=== PATIENT | male | born 1940 | race Caucasian/White ===

== ENCOUNTER 2021-03-30 15:51 | Observation (INO) | payer MEDICARE, SELFPAY ==
[2021-03-30] VITALS (8 sets, daily range): BP systolic 108–144; BP diastolic 72–89; PULSE 74–92; RESP 16–23; TEMP 36.3–36.6; O2SAT 93–96; BMI 31.8
[2021-03-30 16:23] LABS: Basophils Absolute Auto 0.1 K/mm3 (0.0-0.1); Basophils Percent Auto 0.7 % (0.2-1.2); Eosinophils Absolute Auto 0.2 K/mm3 (0-0.3); Eosinophils Percent Auto 3.5 % (0-4.4); Hematocrit 41.1 % (42.0-52.0); Hemoglobin 13.4 g/dL (14.0-18.0); Immature Granulocyte Absolute 0.03 K/mm3 (0.00-0.031); Immature Granulocyte Percent A 0.4 % (0-0.5); Lymphocytes Absolute Auto 1.09 K/mm3 (0.9-3.2); Mean Corpuscular HGB Conc 32.6 g/dl (32-36); Mean Corpuscular Hemoglobin 30.7 pg (26-34); Mean Corpuscular Volume 94.3 fl (80-100); Monocytes Absolute Auto 0.7 K/mm3 (0.1-0.6); Monocytes Percent Auto 9.7 % (2.6-8.5); Neutrophils Absolute Auto 4.8 K/mm3 (1.3-6.7); Neutrophils Percent Auto 69.7 % (45.5-73.1); Platelet Count Result 262 k/mm3 (150-375); Red Blood Count 4.36 M/mm3 (4.6-6.20); Red Cell Distribution Width 12.3 % (11.5-14.5); White Blood Count 6.8 K/mm3 (4.5-10.0)
[2021-03-30 16:33] LABS: Alanine Aminotransferase 18 U/L (4-50); Albumin Level 4.1 g/dL (3.5-5.1); Alkaline Phosphatase 60 U/L (38-126); Anion Gap 11 mmol/L (8-16); Aspartate Amino Transferase 26 U/L (17-59); Bilirubin,Total 0.3 mg/dL (0.2-1.3); Blood Urea Nitrogen 26 mg/dL (9-20); Calcium 9.6 mg/dL (8.4-10.2); Carbon Dioxide 21 mmol/L (22-30); Chloride 108 mmol/L (98-107); Estimated CRCL calculation 69 ml/min; Estimated Glomerular Filt Rate > 60; Glucose 109 mg/dL (75-110); Potassium 4.1 mmol/L (3.4-5.0); Sodium 140 mmol/L (137-145)
[2021-03-30 16:36] LABS: INR 0.9; Partial Thromboplastin Time 24.3 SECONDS (22.3-36.8); Prothrombin Time 12.6 Seconds (11.1-14.7)
--- NOTE | 2021-03-30 16:46 | ED.GIBLEED ---
HPI - GI Bleed General Chief complaint: GI Bleed Stated complaint: blood in stool Time Seen by Provider: 03/30/21 16:02 Source: patient and RN notes reviewed Mode of arrival: ambulatory Limitations: no limitations History of Present Illness HPI Narrative: This is a 80 year old male who presents for evaluation of bloody stools. He states last night around 1 am he had a bowel movement. He was unable to see his stool's appearance but he noticed blood stain around toilet this morning. He reports he had a bowel movement around 130 pm today , and he noticed that he passed bright red blood. He denies abdominal pain, nausea, vomiting or dizziness. He states he has past history of hemorrhoids that would bleeding when he was dealing with constipation. His stools are soft currently because he is taking Miralax. He takes plavixs daily. Related Data Home Medications Medication Instructions Recorded Confirmed Adults Multivitamin 1 tablet PO DAILY 03/30/21 03/30/21 calcium carbonate-vitamin D3 1 tablet PO BID 03/30/21 03/30/21 [Calcium with Vitamin D] clopidogrel [Plavix] 75 mg PO HS 03/30/21 03/30/21 pravastatin 40 mg PO HS 03/30/21 03/30/21 Allergies Allergy/AdvReac Type Severity Reaction Status Date / Time No Known Allergies Allergy Verified 03/30/21 15:55 Review of Systems Review of Systems: All systems reviewed & are unremarkable except as noted in HPI and below Constitutional: Constitutional: Denies chills, Denies fatigue and Denies fever(s) Gastrointestinal: Gastrointestinal: Denies abdominal pain, Denies nausea and Denies vomiting Musculoskeletal: Musculoskeletal: Reports arthralgias PMFSH Past Medical History Medical History (Updated 03/31/21 @ 00:13 by Jazzy Orourke MD) CAD (coronary artery disease) GI bleed Hyperlipidemia Lung mass Treated with radiation treatment and has yearly scans Prostate cancer Patient had multiple radiation treatments. The 1st time the prostate was frozen and then several years later returned so the patient had several radiation treatments after that. 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 His is the durable power civil rights attorney for healthcare. The patient is a full code. He does not want to live in a vegetative state. The patient has a son and a daughter. His is the durable power civil rights attorney but in the event that she is not able to then the son is a durable power civil rights attorney. Patient is a former smoker. He does not use any alcohol marijuana or illicit drugs. Smoking packs per day: 1 Smoking cigarettes per day: 20.0 Years smoked: 35 Smoking pack-years: 35.00 Smoking status: Former smoker Alcohol intake: current Drinks per week: 6 Substance use: current Substance use type: does not use Spiritual care concerns: No Exam Const: General: no acute distress and alert Orientation/consciousness: patient oriented x3 Eyes: EOM: EOMs intact bilaterally Resp: Effort & Inspection: normal respiratory effort and no retractions Auscultation: clear to auscultation bilaterally Cardio: Rate: regular rate Rhythm: regular rhythm Heart sounds: no murmurs GI: GI Palp: Yes Soft to palpation, No Tenderness to palpation present (GI) and No Guarding due to palpation present (GI) Auscultation: normal bowel sounds Rectal Exam: normal sphincter tone Other: bright red blood on digital exam, no clots, no acute bleeding Skin: General skin exam: normal color R
[2021-03-30 18:15] LABS: Hematocrit 39.9 % (42.0-52.0); Hemoglobin 13.2 g/dL (14.0-18.0)
--- NOTE | 2021-03-30 20:03 | PC.NURSE ---
RN not ready for report-she will call back per floor
--- NOTE | 2021-03-30 20:59 | ADMGEN ---
This patient, Hiram Palomino, was admitted to Medical Room 252-01. Patient/family oriented to hospital policies and general routines including ID bracelet, bed and alarms, visiting hours, pain management, procedures, bathroom and other care routines, personal items, smoking policy, room service/diet, and visiting hours. Information on how to activate the Rapid Response Team has been discussed. Patient/Family are encouraged to report perceived risks to care and to ask questions if they do not understand what they are told or what they should do.
--- NOTE | 2021-03-30 23:23 | PM.IMHP ---
H&P: HPI History of Present Illness Date/Time: 03/30/21 23:23 this is a 80-year-old male patient who came in today for evaluation of bloody stools. The patient initially wanted to go to [facility] but was told that they do not have a GI on-call. The patient came to the emergency room here for evaluation bloody stool. He states that last night around 1:00 a.m. he had a bowel movement he did really notice if there was blood in there until later on the morning he woke up and saw that there was a dark ring in the stool that appeared to be blood. The patient had another bowel movement this afternoon which was bright red blood. The patient stated that he has had another bloody stool since he was admitted here. The patient stated that he has been taking a lot of NSAIDs due to his right hip pain. The patient stated that he should not have taken the NSAIDs with his Plavix. He states that his GI doctors Dr. parekh at [facility]. The patient stated that he would not want to have a colonoscopy here and that he would rather go back to his regular GI doctor. However was explained to him that an emergency situation that he would be seen by the GI specialist here for possible colonoscopy if need be. The patient was agreeable to this 13.2 and 39.9 today the patient stated that he has only had 1 bloody stool since he was admitted. He denies any discomfort. No nausea vomiting or diarrhea. The patient was given IV Tylenol in the emergency room. The patient is being admitted to observation on the date of service of 03/30/2020 Chief Complaint: GI bleed Review of Systems Review of Systems: All systems reviewed & are unremarkable except as noted in HPI and below Constitutional: Constitutional: Reports as per HPI and Reports no additional constitutional complaints Eyes: Eyes: Reports as per HPI and Reports no additional eye complaints ENT: Reports system reviewed and no additional complaints, except as documented and Reports Normal hearing present Cardiovascular: Cardiovascular: Reports no additional cardiovascular complaints Respiratory: Respiratory: Reports no additional respiratory complaints and Reports no additional respiratory complaints Gastrointestinal: Gastrointestinal: Reports as per HPI and Reports no additional gastrointestinal complaints Musculoskeletal: Musculoskeletal: Reports no additional musculoskeletal complaints Integumentary/Breasts: Skin/Breast: Reports system reviewed and no additional complaints, except as docu and Reports as per HPI Neurologic: Reports system reviewed and no additional complaints, except as documented, Reports as per HPI and Reports Normal hearing present Psychiatric: Psychiatric: Reports no additional psychiatric complaints and Reports as per HPI Endocrine: Endocrine: Reports no additional endocrine complaints Hematologic/Lymphatic: Hematologic/Lymphatic: Reports no additional hematologic/lymphatic complaints Allergic/Immunologic: Allergic/Immunologic: Reports no additional allergic/immunologic complaints [facility] Past Medical History Medical History (Updated 03/30/21 @ 23:41 by Yaneth Landers NP) CAD (coronary artery disease) GI bleed Hyperlipidemia Lung mass Treated with radiation treatment and has yearly scans Prostate cancer Patient had multiple radiation treatments. The 1st time the prostate was frozen and then several years later returned so the patient had several radiation treatments after that. Surgical History Surgical History (Updated 03/30/21 @ 23:34 by Yaneth Landers NP) H/O cystoscopy Hx of colonoscopy Family History Family History (Updated 03/30/21 @ 23:36 by Yaneth Landers NP) Sibling Parkinsons disease Grandparent Diabetes mellitus Mother Emphysema of lung Father Lung cancer Social History Social History (Updated 03/30/21 @ 23:39 by Yaneth Landers NP) Social History: The patient is and she had a specialty business for the
[2021-03-31] VITALS (7 sets, daily range): BP systolic 121–152; BP diastolic 55–82; PULSE 68–77; RESP 14–22; TEMP 36.4–36.9; O2SAT 94–96
[2021-03-31 03:50] LABS: Hematocrit 37.6 % (42.0-52.0); Hemoglobin 12.3 g/dL (14.0-18.0)
[2021-03-31 05:59] LABS: Basophils Percent Auto 0.6 % (0.2-1.2); Eosinophils Absolute Auto 0.3 K/mm3 (0-0.3); Eosinophils Percent Auto 4.6 % (0-4.4); Hematocrit 36.6 % (42.0-52.0); Hemoglobin 12.2 g/dL (14.0-18.0); Immature Granulocyte Absolute 0.03 K/mm3 (0.00-0.031); Immature Granulocyte Percent A 0.4 % (0-0.5); Lymphocytes Absolute Auto 0.87 K/mm3 (0.9-3.2); Lymphocytes Percent Auto 12.9 % (18.3-44.2); Mean Corpuscular HGB Conc 33.3 g/dl (32-36); Mean Corpuscular Hemoglobin 30.9 pg (26-34); Mean Corpuscular Volume 92.7 fl (80-100); Mean Platelet Volume 9.1 fl (7.4-10.4); Monocytes Absolute Auto 0.8 K/mm3 (0.1-0.6); Monocytes Percent Auto 11.1 % (2.6-8.5); Neutrophils Absolute Auto 4.8 K/mm3 (1.3-6.7); Neutrophils Percent Auto 70.4 % (45.5-73.1); Platelet Count Result 244 k/mm3 (150-375); Red Blood Count 3.95 M/mm3 (4.6-6.20); Red Cell Distribution Width 12.3 % (11.5-14.5); White Blood Count 6.8 K/mm3 (4.5-10.0)
[2021-03-31 06:18] LABS: Alanine Aminotransferase 15 U/L (4-50); Albumin Level 3.7 g/dL (3.5-5.1); Alkaline Phosphatase 55 U/L (38-126); Anion Gap 10 mmol/L (8-16); Aspartate Amino Transferase 26 U/L (17-59); Bilirubin,Total 0.5 mg/dL (0.2-1.3); Blood Urea Nitrogen 22 mg/dL (9-20); Carbon Dioxide 24 mmol/L (22-30); Chloride 107 mmol/L (98-107); Estimated CRCL calculation 78 ml/min; Estimated Glomerular Filt Rate > 60; Glucose 112 mg/dL (75-110); Lactate Dehydrogenase 315 U/L (313-618); Magnesium 1.9 mg/dL (1.6-2.3); Sodium 141 mmol/L (137-145)
--- NOTE | 2021-03-31 07:02 | WPDGICN ---
Assessment and Plan Assessment and plan (1) GI bleed: Code(s): K92.2 - Gastrointestinal hemorrhage, unspecified Status: Acute Assessment and Plan: He had had red blood in his stools once when straining when he was constipated. He has been on MiraLax for the last several months and now has soft stools. He was not straining excessively when he passed blood Saturday. He has no rectal pain. He has noted blood not only in the toilet but also when wiping himself. he would prefer to go back to his regional director of admissions in [place] for procedures. Because his hemoglobin is stable. 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 He had not noticed any bleeding at the time of his radiation. GI Consult Note Consult date/time: 03/31/21 07:02 HPI: Hiram Palomino is a 80 year old male Who presented to the emergency room with rectal bleeding. He states that blood was initially bright red but it also was dark later. He was not having any abdominal pain he was not straining he has had no vomiting or nausea. 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 He had been coughing and taking anti-inflammatory medications also. He denies heartburn or dysphagia weight loss or fever. The last time he had a colonoscopy was in [place], with Dr. Whitfield.. He had had radiation treatment for prostate cancer but does not recall any bleeding associated with that. Review of Systems Review of Systems: All systems reviewed & are unremarkable except as noted in HPI and below [facility] Past Medical History Medical History (Updated 03/31/21 @ 07:05 by Lyle Gama MD) CAD (coronary artery disease) GI bleed Hyperlipidemia Lung mass Treated with radiation treatment and has yearly scans Prostate cancer Patient had multiple radiation treatments. The 1st time the prostate was frozen and then several years later returned so the patient had several radiation treatments after that. 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 His is the durable power civil attorney for healthcare. The patient is a full code. He does not want to live in a vegetative state. The patient has a son and a daughter. His is the durable power civil attorney but in the event that she is not able to then the son is a durable power civil attorney. Patient is a former smoker. He does not use any alcohol marijuana or illicit drugs. Smoking packs per day: 1 Smoking cigarettes per day: 20.0 Years smoked: 35 Smoking pack-years: 35.00 Smoking status: Former smoker Alcohol intake: current Drinks per week: 6 Substance use: current Substance use type: does not use Spiritual care concerns: No Meds Home Medications and Allergies Home Medications Medication Instructions Recorded Confirmed Type Adults Multivitamin 1 tablet PO DAILY 03/30/21 03/30/21 History calcium carbonate-vitamin D3 1 tablet PO BID 03/30/21 03/30/21 History [Calcium with Vitamin D] clopidogrel [Plavix] 75 mg PO HS 03/30/21 03/30/21 History pravastatin 40 mg PO HS 03/30/21 03/30/21 History Allergies Allergy/AdvReac Type Severity Reaction Status Date / Time No Known Allergies Allergy
[2021-03-31] MEDS: PANTOPRAZOLE SODIUM IV 40 MG VIAL IV PUSH (08:01)
[2021-03-31 11:57] LABS: Hematocrit 38.3 % (42.0-52.0); Hemoglobin 12.6 g/dL (14.0-18.0)
--- NOTE | 2021-03-31 12:14 | PC.NURSE ---
Patient to GI lab per wheelchair. Report given to Lupe, all questions answered.
[2021-03-31] MEDS: LACTATED RINGERS 1,000 ML 150 ML IV CONT (12:25)
--- NOTE | 2021-03-31 12:35 | WPDANESEPPF ---
Anes - Initial Pre Proc Eval Procedure: Operation Date: 03/31/21 12:30 Proposed Procedures p Esophagogastroduodenoscopy - Lyle Gama MD Date/Time: 03/31/21 12:35 Surgeon: Mindy Olivo PA-C Pre Op Diagnosis: Rectal Bleeding Patient Data Age: 80 Gender: M Height: 5 ft 9.5 in Weight: 99.2 kg Last Vital Signs Temp 97.6 F 03/31/21 12:28 Pulse 77 03/31/21 12:28 Resp 20 03/31/21 12:28 BP 152/70 H 03/31/21 12:28 Pulse Ox 96 03/31/21 12:28 Allergies Allergy/AdvReac Type Severity Reaction Status Date / Time No Known Allergies Allergy Verified 03/31/21 12:22 Home Medications Medication Instructions Recorded Confirmed Type Adults Multivitamin 1 tablet PO DAILY 03/30/21 03/30/21 History calcium carbonate-vitamin D3 1 tablet PO BID 03/30/21 03/30/21 History [Calcium with Vitamin D] clopidogrel [Plavix] 75 mg PO HS 03/30/21 03/30/21 History pravastatin 40 mg PO HS 03/30/21 03/30/21 History Laboratory Tests 03/30/21 03/30/21 03/30/21 16:17 16:17 16:17 WBC 6.8 K/mm3 K/mm3 (4.5-10.0) RBC 4.36 M/mm3 L M/mm3 (4.6-6.20) Hgb 13.4 g/dL L g/dL (14.0-18.0) Hct 41.1 % L % (42.0-52.0) MCV 94.3 fl fl (80-100) MCH 30.7 pg pg (26-34) MCHC 32.6 g/dl g/dl (32-36) RDW 12.3 % % (11.5-14.5) Plt Count 262 k/mm3 k/mm3 (150-375) MPV 9.0 fl fl (7.4-10.4) Immature Gran % (Auto) 0.4 % % (0-0.5) Neut % (Auto) 69.7 % % (45.5-73.1) Lymph % (Auto) 16.0 % L % (18.3-44.2) [place] % (Auto) 9.7 % H % (2.6-8.5) Eos % (Auto) 3.5 % % (0-4.4) Baso % (Auto) 0.7 % % (0.2-1.2) Lymph # (Auto) 1.09 K/mm3 K/mm3 (0.9-3.2) [place] # (Auto) 0.7 K/mm3 H K/mm3 (0.1-0.6) Eos # (Auto) 0.2 K/mm3 K/mm3 (0-0.3) Baso # (Auto) 0.1 K/mm3 K/mm3 (0.0-0.1) Abs Immat Gran (auto) 0.03 K/mm3 K/mm3 (0.00-0.031) Absolute Neuts (auto) 4.8 K/mm3 K/mm3 (1.3-6.7) Absolute Nucleated RBC 0.0 K/mm3 K/mm3 (0.0-0.012) Nucleated RBC % 0.0 % % (0.0-0.2) PT 12.6 Seconds Seconds (11.1-14.7) INR 0.9 APTT 24.3 SECONDS SECONDS (22.3-36.8) Sodium 140 mmol/L mmol/L (137-145) Potassium 4.1 mmol/L mmol/L (3.4-5.0) Chloride 108 mmol/L H mmol/L (98-107) Carbon Dioxide 21 mmol/L L mmol/L (22-30) Anion Gap 11 mmol/L mmol/L (8-16) BUN 26 mg/dL H mg/dL (9-20) Creatinine 0.90 mg/dL mg/dL (0.7-1.3) Estim Creat Clear Calc 69 ml/min ml/min Estimated GFR > 60 (59 - ) Glucose 109 mg/dL mg/dL (75-110) Calcium 9.6 mg/dL mg/dL (8.4-10.2) Magnesium Ferritin Total Bilirubin 0.3 mg/dL mg/dL (0.2-1.3) AST 26 U/L U/L (17-59) ALT 18 U/L U/L (4-50) Alkaline Phosphatase 60 U/L U/L (38-126) Lactate Dehydrogenase Total Protein 7.0 g/dL g/dL (6.3-8.2) Albumin 4.1 g/dL g/dL (3.5-5.1) TSH (Reflex) Blood Type Antibody Screen 03/30/21 03/30/21 03/31/21 16:17 18:09 00:40 WBC RBC Hgb 13.2 g/dL L g/dL 12.3 g/dL L g/dL (14.0-18.0) (14.0-18.0) Hct 39.9 % L % 37.6 % L % (42.0-52.0) (42.0-52.0) MCV MCH MCHC RDW Plt Count MPV Immature Gran % (Auto) Neut % (Auto) Lymph % (Auto) [place] % (Auto) Eos % (Auto) Baso % (Auto) Lymph # (Auto) [place] # (Auto) Eos # (Auto) Baso # (Auto) Abs Immat Gran (auto) Absolute Neuts (auto) Absolute Nucleated RBC
[2021-03-31] MEDS: BENZOCAINE (*SP) 60 ML SPRAY CAN (HURRICAINE) 1 SPRAY MUCOUS MEM (12:45)
[2021-03-31] MEDS: SIMETHICONE ORAL SUSPENSION 20 MG/0.3 ML 30 ML BOTTLE 0.6 ML PO (12:53)
--- NOTE | 2021-03-31 14:19 | PM.DS ---
DS: Admitting Diagnosis Admitting Diagnosis Admitting Diagnosis: Rectal bleeding DS: Discharge Diagnosis Discharge Diagnosis (1) GI bleed: Code(s): K92.2 - Gastrointestinal hemorrhage, unspecified Status: Acute Assessment and Plan: Presented with 4-5 episodes of bright red bleeding per rectum that then became dark/tarry. He did not wish to undergo colonoscopy as he would prefer to follow up with his established GI specialist at [facility], but was agreeable to EGD given concerns for melena. Underwent EGD on 03/31/[address] Gama which demonstrated nonerosive reflux disease with no findings of bleeding. Given his stable hemoglobin, it was felt to be appropriate for him to follow up with his GI promptly as an outpatient to schedule colonoscopy. (2) Normocytic anemia: Code(s): D64.9 - Anemia, unspecified Status: Acute Assessment and Plan: Baseline hemoglobin is not known. Hgb remained stable around 12.5. Vital signs remained stable and his rectal bleeding improved. (3) CAD (coronary artery disease): Code(s): I25.10 - Atherosclerotic heart disease of [place] coronary artery without angina pectoris Status: Chronic Assessment and Plan: Reported minimal blockages in one of his coronary arteries and had been taking Plavix. Plavix held in light of GI bleed and should be resumed after prompt follow up with his gastroeneterologist. (4) Right hip pain: Code(s): M25.551 - Pain in right hip Status: Acute Assessment and Plan: Recently developed right hip soreness after a golf game. He had started taking ibuprofen for this, therefore there was concern for ulcer or other upper GI cause of bleeding. EGD negative. Discussed avoiding NSAIDs. Supportive care for right hip. DS: Summary Hospital Course Hospital Course: Date of admission: 03/30/2021 Date of discharge: 03/31/2021 Hiram Palomino is a 80-year-old male with a history of CAD, hyperlipidemia, and remote history of prostate cancer s/p radiation who presented to the emergency department on 03/30/2021 with complaints of bright red blood in stools. Upon presentation to the emergency department, his vital signs were stable, hemoglobin 13.2, hematocrit 39.9, and BMP was unremarkable. He was admitted to the hospitalist service and seen in consultation by Gastroenterology. Please see above for further details. He underwent EGD which did not demonstrate any findings to explain his bleeding. He did not wish to undergo colonoscopy and will follow-up with his rubber tester at [facility]. His rectal bleeding improved. He was feeling in his usual state of health. Given his overall improvement and stable hemoglobin and hematocrit, he was determined to no longer require inpatient care and was felt to be stable for discharge. We discussed worrisome signs and symptoms for which to return and he was educated on his medications. He understands need for follow-up with his rubber tester and PCP. He was discharged in hemodynamically stable condition on 03/31/2021. Status at Discharge Functional status at discharge: independent ambulation Overall status at discharge: patient is progressing back to baseline Time Spent with Patient Time attestation: Total time spent providing and/or coordinating discharge services: 45 minutes Time spent: Greater than 30 minutes Exam Narrative: Exam Narrative: Mr. Palomino is a well-nourished, well-appearing 80-year-old male who is lying supine in bed. He appears comfortable and is in NARD. Neuro: awake, alert and oriented x4, speech clear, no focal neuro deficits noted HEENMT: normocephalic, atraumatic, EOMI, sclerae anicteric, moist oral mucosa, tongue midline, nares patent Neck: supple, no lymphadenopathy Respiratory: clear to auscultation bilaterally, nonlabored breathing Cardio: regular rate, regular rhythm with S1-S2 Abdomen: nondistended, normoactive bow
== END 2021-03-31 15:40 | disposition home or self-care (01) ==
LOC: ANHED 16:18 → ANH2MED 19:08
PROVIDERS: Emergency Medicine; Internal Medicine Gastroenterology; Nurse Practitioner; Admitting Provider Family Medicine; Emergency Provider General Practice; PCP Internal Medicine Geriatric Medicine; Visit Provider Physician Assistant
PROC: 0DJ08ZZ Inspection of Upper Intestinal Tract, Via Natural or Artificial Opening Endoscopic (ICD-10-PCS; CPT 43235; principal; 2021-03-31 12:30)
DX: K92.2 Gastrointestinal hemorrhage, unspecified (principal); K92.1 Melena; K21.9 Gastro-esophageal reflux disease without esophagitis; I25.10 Atherosclerotic heart disease of native coronary artery without angina pectoris; D64.9 Anemia, unspecified; E78.5 Hyperlipidemia, unspecified; M25.551 Pain in right hip; Z85.46 Personal history of malignant neoplasm of prostate; Z87.891 Personal history of nicotine dependence; Z92.3 Personal history of irradiation; Z79.02 Long term (current) use of antithrombotics/antiplatelets
CPT/HCPCS: 43239; 36415; 80053; 82728; 83615; 83735; 84443; 85014; 85018; 85025; 85610; 85730; 86850; 86900; 86901; 87081; 96361; 96374; 99285; C9113; G0378; J2704; J7120